=== PATIENT | male | born 1975 | race Caucasian/White ===

== ENCOUNTER 2019-03-11 13:16 | Inpatient (IN) | payer MEDICAID, OTHER ==
[~2019-03-11] VITALS: Ht 157.5 cm; Wt 66.8 kg
[2019-03-11] MEDS ORDERED: HYDR-3326 PO (13:34)
[2019-03-11] MEDS ORDERED: TRAM50TA2 PO (13:34)
[2019-03-11] MEDS ORDERED: ALPR2TAB7 PO (13:34)
[2019-03-11] MEDS ORDERED: HYDROMORPHONE 1 MG/1 ML DISP.SYRIN IV ONE (13:45)
[2019-03-11] MEDS ORDERED: HYDROMORPHONE 1 MG/1 ML DISP.SYRIN ONE (13:59)
[2019-03-11 14:04] LABS: BASOPHILS % (AUTO) 0.4 % (0.0-2.0); EOSINOPHILS # (AUTO) 0.1 K/uL (0.0-0.7); EOSINOPHILS % (AUTO) 1.1 % (0.0-7.0); HEMATOCRIT 40.9 % (36.7-47.1); HEMOGLOBIN 13.7 g/dL (12.5-16.3); LYMPHOCYTES % (AUTO) 13.8 % (20.5-51.5); MEAN CORPUSCULAR HEMOGLOBIN 29.3 uug (23.8-33.4); MEAN CORPUSCULAR HGB CONC 34 g/dL (32.5-36.3); MEAN CORPUSCULAR VOLUME 87.5 fL (73.0-96.2); MONOCYTES # (AUTO) 0.7 K/uL (2.0-10.0); MONOCYTES % (AUTO) 10.5 % (0.0-11.0); NEUTROPHILS # (AUTO) 5.1 K/uL (1.8-8.9); NEUTROPHILS % (AUTO) 74.2 % (38.5-71.5); PLATELET COUNT (AUTO) 237 K/uL (152-348); RED BLOOD CELL COUNT(AUTO) 4.68 MIL/uL (4.06-5.63); WHITE BLOOD COUNT (AUTO) 6.9 K/uL (3.6-10.2)
[2019-03-11 14:11] LABS: CREATININE 0.9 mg/dL (0.6-1.3)
[2019-03-11] MEDS ORDERED: IOHEXOL 300MG/ML 100 ML INFUS..BTL ONE (14:13)
[2019-03-11] MEDS ORDERED: SWABABLE VALVE TRANSFER SET EA MC ONE (14:13)
[2019-03-11] MEDS ORDERED: IV NORMAL SALINE 250 ML IV ONE (14:13)
[2019-03-11 14:19] LABS: MAGNESIUM 2.1 mg/dL (1.8-2.4); PHOSPHOROUS 3.1 mg/dL (2.5-4.9)
[2019-03-11 14:23] LABS: BILIRUBIN,DIRECT 10.1 mg/dL (0.0-0.2); BILIRUBIN,TOTAL 11.9 mg/dL (0.2-1.0); TOTAL PROTEIN, SERUM 6.1 g/dL (6.4-8.2)
[2019-03-11 14:31] LABS: THYROID STIMULATING HORMONE 4.369 mIU/mL (0.358-3.740)
[2019-03-11] MEDS ORDERED: IV NS 1000 ML 1,000 ML IV ONE (14:45)
[2019-03-11] MEDS ORDERED: ONDANSETRON 4 MG/2 ML VIAL IV PRN (16:00)
[2019-03-11] MEDS ORDERED: Z GUARD REMEDY PASTE 57 GM TUBE TOP PRN (16:00)
[2019-03-11] MEDS ORDERED: MAGNESIUM HYDROXIDE 30 ML LIQUID UDC PO PRN (16:00)
[2019-03-11 16:45] VITALS: BP 97/69
[2019-03-11] MEDS ORDERED: ALPRAZOLAM 0.5 MG TABLET PO PRN (17:15)
[2019-03-11] MEDS: IV NS 1000 ML 1,000 ML IV PRN (17:29)
[2019-03-11 20:26] VITALS: BP 97/69
[2019-03-11] MEDS: HYDROMORPHONE 1 MG/1 ML DISP.SYRIN IV PRN (20:29)
[2019-03-12 00:29] VITALS: BP 98/67
[2019-03-12] MEDS: HYDROMORPHONE 1 MG/1 ML DISP.SYRIN IV PRN ×6 (02:08→23:57)
[2019-03-12 05:49] VITALS: BP 115/84
[2019-03-12] MEDS: PANTOPRAZOLE SODIUM 40 MG TABLET.DR PO SCH (06:12)
[2019-03-12] MEDS: IV NS 1000 ML 1,000 ML IV PRN (06:17)
[2019-03-12 06:19] LABS: BASOPHILS % (AUTO) 0.3 % (0.0-2.0); EOSINOPHILS # (AUTO) 0.1 K/uL (0.0-0.7); EOSINOPHILS % (AUTO) 0.8 % (0.0-7.0); HEMATOCRIT 36.5 % (36.7-47.1); HEMOGLOBIN 12.5 g/dL (12.5-16.3); LYMPHOCYTES # (AUTO) 1.3 K/uL (20.0-40.0); LYMPHOCYTES % (AUTO) 17.4 % (20.5-51.5); MEAN CORPUSCULAR HEMOGLOBIN 29.3 uug (23.8-33.4); MEAN CORPUSCULAR HGB CONC 34 g/dL (32.5-36.3); MEAN CORPUSCULAR VOLUME 85.7 fL (73.0-96.2); MONOCYTES # (AUTO) 0.8 K/uL (2.0-10.0); MONOCYTES % (AUTO) 10.9 % (0.0-11.0); NEUTROPHILS # (AUTO) 5.4 K/uL (1.8-8.9); NEUTROPHILS % (AUTO) 70.6 % (38.5-71.5); PLATELET COUNT (AUTO) 263 K/uL (152-348); RED BLOOD CELL COUNT(AUTO) 4.26 MIL/uL (4.06-5.63); WHITE BLOOD COUNT (AUTO) 7.6 K/uL (3.6-10.2)
[2019-03-12 06:29] LABS: ALANINE AMINOTRANSFERASE 42 U/L (16-63); ALKALINE PHOSPHATASE 791 U/L (50-136); ASPARTATE AMINOTRANSFERASE 83 U/L (15-37); BILIRUBIN,TOTAL 11.3 mg/dL (0.2-1.0); CARBON DIOXIDE 23 mmol/L (21-32); CHLORIDE 97 mmol/L (98-107); CHOLESTEROL 121 mg/dL (<200); CREATININE 0.9 mg/dL (0.6-1.3); GLUCOSE 79 mg/dL (74-106); MAGNESIUM 1.9 mg/dL (1.8-2.4); PHOSPHOROUS 2.8 mg/dL (2.5-4.9); POTASSIUM 4.3 mmol/L (3.5-5.1); TRIGLYCERIDES 191 MG/DL (30-150); UREA NITROGEN, BLOOD 21 mg/dL (7-18)
[2019-03-12 06:39] LABS: THYROID STIMULATING HORMONE 5.143 mIU/mL (0.358-3.740)
[2019-03-12 07:17] LABS: HDL CHOLESTEROL < 10 mg/dL (40-60)
[2019-03-12] MEDS: IV 1/2NS 1000 ML 1,000 ML IV PRN (11:24)
[2019-03-12 11:42] VITALS: BP 114/85
[2019-03-12 15:49] LABS: *BILIRUBIN,URIN 3+ (NEGATIVE); *BLOOD, URINE NEGATIVE (NEGATIVE); *CLARITY,URINE TURBID (CLEAR); *COLOR,URINE YELLOW (YELLOW); *KETONES,URINE TRACE (NEGATIVE); LEUKOCYTE ESTERASE ,URINE NEGATIVE (NEGATIVE); NITRITE, URINE NEGATIVE (NEGATIVE); UGLUCOSE TRACE (NEGATIVE)
[2019-03-12 16:02] VITALS: BP 118/84
[2019-03-12 16:07] LABS: BACTERIA,URINE FEW /HPF (NONE SEEN); RBC,URINE 0-3 /HPF (0-3); SQUAMOUS EPITHELIAL CELL,UR FEW /HPF (NONE SEEN); WBC,URINE 0-3 /HPF (0-3)
[2019-03-12 16:08] LABS: URINE AMORPHOUS URATE MANY /HPF
[2019-03-12] MEDS: ALBUMIN HUMAN 25% 25 GM in PREMIXED 1 EACH IV SCH ×2 (18:08→23:56)
[2019-03-12 20:47] VITALS: BP 115/85
[2019-03-13 01:01] VITALS: BP 108/81
[2019-03-13] MEDS: IV 1/2NS 1000 ML 1,000 ML IV PRN (01:30)
[2019-03-13 04:00] VITALS: BP 110/78
[2019-03-13] MEDS ORDERED: HYDROMORPHONE 1 MG/1 ML DISP.SYRIN ONE (04:59)
[2019-03-13] MEDS: ALBUMIN HUMAN 25% 25 GM in PREMIXED 1 EACH IV SCH ×2 (05:08→11:41)
[2019-03-13] MEDS: PANTOPRAZOLE SODIUM 40 MG TABLET.DR PO SCH (06:07)
[2019-03-13 07:03] LABS: BASOPHILS % (AUTO) 0.4 % (0.0-2.0); EOSINOPHILS # (AUTO) 0.1 K/uL (0.0-0.7); EOSINOPHILS % (AUTO) 1.6 % (0.0-7.0); HEMATOCRIT 32.3 % (36.7-47.1); HEMOGLOBIN 11.1 g/dL (12.5-16.3); LYMPHOCYTES % (AUTO) 15.1 % (20.5-51.5); MEAN CORPUSCULAR HEMOGLOBIN 29.5 uug (23.8-33.4); MEAN CORPUSCULAR HGB CONC 34 g/dL (32.5-36.3); MEAN CORPUSCULAR VOLUME 86.3 fL (73.0-96.2); MONOCYTES # (AUTO) 0.7 K/uL (2.0-10.0); MONOCYTES % (AUTO) 11.2 % (0.0-11.0); NEUTROPHILS # (AUTO) 4.7 K/uL (1.8-8.9); NEUTROPHILS % (AUTO) 71.7 % (38.5-71.5); PLATELET COUNT (AUTO) 227 K/uL (152-348); RED BLOOD CELL COUNT(AUTO) 3.74 MIL/uL (4.06-5.63); WHITE BLOOD COUNT (AUTO) 6.6 K/uL (3.6-10.2)
[2019-03-13 07:42] LABS: POTASSIUM 4.1 mmol/L (3.5-5.1)
[2019-03-13] MEDS ORDERED: LACTULOSE 20 G/30 ML LIQUID UDC PO ONE (07:45)
[2019-03-13] MEDS: HYDROMORPHONE 1 MG/1 ML DISP.SYRIN IV PRN ×4 (09:58→23:03)
[2019-03-13 12:04] VITALS: BP 110/81
[2019-03-13 15:30] VITALS: BP 94/62
[2019-03-13 20:20] VITALS: BP 108/80
[2019-03-13] MEDS: HYDROCODONE/APAP 5-325MG TABLET PO PRN (20:46)
[2019-03-14 00:47] VITALS: BP 106/78
[2019-03-14] MEDS: HYDROMORPHONE 1 MG/1 ML DISP.SYRIN IV PRN (03:08)
[2019-03-14 04:00] VITALS: BP 110/70
[2019-03-14] MEDS: HYDROCODONE/APAP 5-325MG TABLET PO PRN (06:13)
[2019-03-14] MEDS: PANTOPRAZOLE SODIUM 40 MG TABLET.DR PO SCH (06:13)
[2019-03-14 07:05] LABS: CREATININE 0.8 mg/dL (0.6-1.3); URIC ACID 3.3 mg/dL (3.5-7.2)
[2019-03-14 07:20] LABS: BASOPHILS % (AUTO) 0.6 % (0.0-2.0); EOSINOPHILS # (AUTO) 0.1 K/uL (0.0-0.7); EOSINOPHILS % (AUTO) 1.2 % (0.0-7.0); HEMATOCRIT 34.3 % (36.7-47.1); HEMOGLOBIN 11.6 g/dL (12.5-16.3); LYMPHOCYTES # (AUTO) 1.1 K/uL (20.0-40.0); LYMPHOCYTES % (AUTO) 16.2 % (20.5-51.5); MEAN CORPUSCULAR HEMOGLOBIN 29.7 uug (23.8-33.4); MEAN CORPUSCULAR HGB CONC 34 g/dL (32.5-36.3); MEAN CORPUSCULAR VOLUME 87.5 fL (73.0-96.2); MONOCYTES # (AUTO) 0.8 K/uL (2.0-10.0); MONOCYTES % (AUTO) 10.8 % (0.0-11.0); NEUTROPHILS % (AUTO) 71.2 % (38.5-71.5); PLATELET COUNT (AUTO) 223 K/uL (152-348); RED BLOOD CELL COUNT(AUTO) 3.92 MIL/uL (4.06-5.63)
[2019-03-14] MEDS ORDERED: LACTULOSE 20 G/30 ML LIQUID UDC PO ONE (08:15)
[2019-03-15 06:06] LABS: AFP, TUMOR MARKER 2.5 ng/mL (0.0-8.3)
[2019-03-15] MEDS ORDERED: FOLIC ACID 1 MG TABLET PO SCH (09:00)
== END 2019-03-14 09:00 | disposition home or self-care (01) | DRG 281 ==
LOC: ER 13:17 → TELE3 16:13
PROVIDERS: ADMIT Nurse Practitioner Acute Care; ATTEND Nurse Practitioner Acute Care
DX: C22.0 Liver cell carcinoma (principal); E43 Unspecified severe protein-calorie malnutrition; R18.8 Other ascites; D68.4 Acquired coagulation factor deficiency; D68.9 Coagulation defect, unspecified; K72.90 Hepatic failure, unspecified without coma; C7A.092 Malignant carcinoid tumor of the stomach; E22.2 Syndrome of inappropriate secretion of antidiuretic hormone; G89.3 Neoplasm related pain (acute) (chronic); E86.0 Dehydration; Z87.891 Personal history of nicotine dependence; R59.0 Localized enlarged lymph nodes; R94.6 Abnormal results of thyroid function studies
CPT/HCPCS: 36415; 70030-TC; 71045; 82105; 82378; 82533; 83605; 83690; 83735; 84100; 84443; 84550; 85025; 85730; 86301; 87086; 93005; A4663; C1758; G0378; J1170; J3490; J7030; J7050; P9047; Q9967